=== PATIENT | female | born 1990 | race Caucasian/White ===

== ENCOUNTER → 2023-09-22 | Outpatient (CLI) | payer OTHER ==
--- NOTE | 2023-09-22 10:16 | MM ---
Reason for Exam: Additional evaluation requested from abnormal screening. Indicated Problems: Palpable abnormality of both sides. Patient History: Menarche at age 11. First Full-Term at age 18. Paternal grandmother had breast cancer, age 40. Paternal aunt had breast cancer, age 30. Paternal aunt had breast cancer, age 30. Paternal aunt had breast cancer under age 50. Paternal aunt had breast cancer under age 50. Last menstrual period: 09/19/2023 Tissue Density: The breasts are heterogeneously dense, which may obscure small masses. Findings: Analyzed By CAD. Findings to correlate with palpable abnormality bilaterally. No new suspicious masses, calcifications or distortions. Overall Assessment: Incomplete: need additional imaging evaluation, BI-RAD 0 Management: Diagnostic Breast Ultrasound of both breasts. Results were given to the patient verbally at the time of exam. Patient should continue monthly self-breast exams. A clinical breast exam by your physician is recommended on an annual basis. This exam should not preclude additional follow-up of suspicious palpable abnormalities. Note on Kylah scores and lifetime risk: 1. A Kylah score greater than 3% is considered moderate risk. If this is the case, consider specialist referral to assess eligibility for a risk reducing agent. 2. If overall lifetime risk for the development of breast cancer is 20% or higher, the patient may qualify for future screening with alternating mammogram and breast MRI. Electronically signed and approved by: Joon Ngo DO
--- NOTE | 2023-09-22 10:27 | USB ---
Reason for Exam: Clinical finding. Patient History: Menarche at age 11. First Full-Term at age 18. Paternal grandmother had breast cancer, age 40. Paternal aunt had breast cancer, age 30. Paternal aunt had breast cancer, age 30. Paternal aunt had breast cancer under age 50. Paternal aunt had breast cancer under age 50. Technique: Method: Targeted. Findings: The area of palpable concern of both breasts, the axilla of both breasts and the retroareolar of both breasts were scanned. Technique utilized:US breast limited BILAT Image; Ultrasound imaging of: Area of concern. No evidence for organizing fluid collection or mass. Right palpable abnormality correlates with small lymph node measuring up to 3 mm in short axis. Additional tiny anechoic cyst posterior nipple measuring 5 mm. No suspicious findings in the left breast corresponding to palpable abnormality. Overall Assessment: Benign, BI-RAD 2 Management: Screening Mammogram of both breasts in 1 year. A clinical breast exam by your physician is recommended on an annual basis and results should be correlated with mammographic findings. This exam should not preclude additional follow-up of suspicious palpable abnormalities. Results were given to the patient verbally at the time of exam. Electronically signed and approved by: Joon Ngo DO
== END | disposition home or self-care (01) ==
LOC: RADMAMWWP 09:07
PROVIDERS: ATTEND Internal Medicine Pulmonary Disease
DX: R92.333 Mammographic heterogeneous density, bilateral breasts (principal); N63.41 Unspecified lump in right breast, subareolar; Z80.3 Family history of malignant neoplasm of breast
CPT/HCPCS: 77066; 76642; G0279; 77062